=== PATIENT | female | born 1980 | race Native Hawaiian/Other Pacific Islander ===

== ENCOUNTER 2018-12-26 05:15 | Inpatient (IN) | payer OTHER ==
[2018-12-26 05:55] VITALS: BMI 32.9
--- NOTE | 2018-12-26 07:02 | OBHP ---
Datetime: 12/26/2018 06:55 IP Adm Impression: Term, intrauterine IP Admit Plan: Admit to unit; Initiate labor augmentation protocol Admit Comment, IP Provider: 38 yo G1 at 39 wks admitted to L_D w/ spontaneous rupture of membranes i n early labor. FHT reactive. GBS negative. Pt receives her care w/ Dr. Stephanie Calderon. H_P dictated, "[id number]" (ES) Extremities - PN: Abnormal Abdomen - PN: Normal Back - PN: Normal Lungs - PN: Normal Heart - PN: Normal Neurologic - PN: Normal General - PN: Normal FHR - Baseline A Provider: 130's Amniotic Fluid Color, Provider: Clear Membranes, Provider: Ruptured Contraction Comments Provider: irregular Comments, ACOG Physical Exam: Extremities: 2+ edema Pool Provider: Positive Nitrazine Provider: Positive Ferning Provider: Positive EGA AdmitDate IP: 39.0 Vital Signs Provider: Reviewed IP Chief Complaint: Suspected ruptured membranes NICHD Variability Prov Fetus A: Moderate 6-25bpm NICHD Accel Fetus A IP Provider: 15X15 FHR Category Provider Fetus A: Category I NICHD Decel Fetus A IP Provider: None Dilatation, Provider: 1 Effacement, Provider: 75 Station, Provider: -2 Genitourinary Exam: Normal
--- NOTE | 2018-12-26 07:09 | OBADHP ---
Datetime: 12/26/2018 07:02 Admit Comment, IP Provider: 38 yo G1 at 39 wks admitted to L_D w/ spontaneous rupture of membranes i n early labor. FHT reactive. GBS negative. Pt receives her care w/ Dr. Stephanie Calderon. H_P dictated, "[id number]" (ES) Extremities - PN: Abnormal Abdomen - PN: Normal Back - PN: Normal Lungs - PN: Normal Heart - PN: Normal Neurologic - PN: Normal General - PN: Normal FHR - Baseline A Provider: 130's Amniotic Fluid Color, Provider: Clear Membranes, Provider: Ruptured Contraction Comments Provider: irregular Comments, ACOG Physical Exam: Ext: 2+ edema Pool Provider: Positive Nitrazine Provider: Positive Ferning Provider: Positive IP Chief Complaint: Suspected ruptured membranes NICHD Variability Prov Fetus A: Moderate 6-25bpm NICHD Accel Fetus A IP Provider: 15X15 FHR Category Provider Fetus A: Category I NICHD Decel Fetus A IP Provider: None Dilatation, Provider: 1 Effacement, Provider: 75 Station, Provider: -2 Genitourinary Exam: Normal EGA AdmitDate IP: 39.0 IP Adm Impression: Term, intrauterine IP Admit Plan: Admit to unit; Initiate labor augmentation protocol Datetime: 12/26/2018 06:55 Vital Signs Provider: Reviewed
[2018-12-26] MEDS: Lactated Ringer's 1,000 ML IV SCH ×5 (07:30→23:30)
[2018-12-26 08:12] LABS: BASO % 0.4 % (0.0-2.0); EOS # 0.1 K/uL (0.0-0.7); EOS % 1.1 % (0.0-4.0); HEMOGLOBIN 12.1 g/dL (12.0-16.0); LYMPH # 2.5 K/uL (1.0-4.3); MEAN CELL VOLUME 91.1 fl (81.0-99.0); MEAN PLATELET VOLUME 9.7 fl (7.2-11.7); MONO # 0.9 K/uL (0.0-0.8); MONO % 9.2 % (0.0-10.0); NEUT # 6.1 K/uL (1.8-7.0); NEUT % 63.3 % (50.0-75.0); NRBC % 0.1 % (0.0-0.0); RBC 4.01 Mil/uL (3.80-5.20); RED CELL DISTRIBUTION WIDTH 14.4 % (11.5-14.5); WHITE BLOOD COUNT 9.7 K/uL (4.8-10.8)
[2018-12-26] MEDS ORDERED: Oxytocin 30 UNIT in NS 500 ml 30 UNITS/500 ML BAG IV ONE (08:14)
--- NOTE | 2018-12-26 10:30 | OBPN ---
Datetime: 12/26/2018 10:28 IP Informed Consent Obtain: Vaginal Delivery IP Procedures: Sterile Vag Exam IP Progress Plan: Continue present management Membranes, Provider: Ruptured Contraction Comments Provider: q 2-5 mins FHR - Baseline A Provider: 140 IP Progress Note Comment: Patient feeling discomfort with contractions, would like epidural for pain VE = /-1 FHR = 140 mod blessing, +accels, no decels TOCO = marissa q 2-5 mins A/P 1. Patient to get epidural for pain Vital Signs Provider: Reviewed; Within Normal Limits NICHD Accel Fetus A IP Provider: 15X15 NICHD Variability Prov Fetus A: Moderate 6-25bpm Dilatation, Provider: 1 Effacement, Provider: 70 Station, Provider: -1 NICHD Decel Fetus A IP Provider: None Datetime: 12/26/2018 07:02 Pool Provider: Positive Nitrazine Provider: Positive Ferning Provider: Positive Amniotic Fluid Color, Provider: Clear FHR Category Provider Fetus A: Category I
[2018-12-26] MEDS ORDERED: Bupivacaine HCl 0.5% PF (30 ml) Inj ONE (11:02)
--- NOTE | 2018-12-26 13:11 | HP ---
HISTORY OF PRESENT ILLNESS: This is a 38-year-old G1 at 39 weeks with an EDC of 01/02/2019 by last menstrual period, consistent with an 8-plus-week ultrasound ,who reports that she passed her mucus plug around 2 a.m. and has had lower back pain on and off for the last 24 hours. The patient reports leaking of fluid. Reports passing a mucus plug and started spotting as well as leaking fluid, all started around 2 a.m. She reports positive movement. The patient receives her care with Dr. Stephanie Calderon. 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 GBS is negative and that was done on 12/02/2018. PAST MEDICAL HISTORY: She has a history of uterine fibroids. She has a history of kidney stones. PAST SURGICAL HISTORY: Robotic myomectomy in 2015. She also reports open surgery for kidney stones when she was 10 years old. MEDICATIONS: vitamins and famotidine. ALLERGIES: NO KNOWN DRUG ALLERGIES. FAMILY HISTORY: Noncontributory. SOCIAL HISTORY: The patient denies tobacco, alcohol and illicit drug use. 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 The patient reports regular periods that last about 5 to 6 days. She denies any history of any STDs or any abnormal Pap smears. LABORATORY DATA: On 06/10/2018, hepatitis B surface antigen is negative and hepatitis B surface antibody is negative. On 06/10/2018, blood type is O positive. No antibodies detected. On 06/10/2018, cystic fibrosis was positive. Otherwise, Horizon 27 layne-ethnic standard test was negative. On 06/10/2018, hemoglobin electrophoresis was normal pattern. On 06/10/2018, RPR was negative. Urine culture was no growth. HIV was negative. Rubella was positive. Drug screen was negative. On 06/22/2018, panoraal test was low risk and female fetus. On 10/05/2018, she had a 3-hour test, the fasting was 81, one hour was 148, the 2-hour was 107, and her 3-hour was 120. On 12/02/2018, group B strep was negative. Hepatitis B surface antigen was negative. HIV was negative. RPR was reactive, 1:1 titer. FTA antibody screen was negative. On 12/09/2018, urine culture was no growth. PHYSICAL EXAMINATION: GENERAL: The patient appears comfortable, lying in bed. VITAL SIGNS: Afebrile. Vital signs are stable. HEART: Regular rate and rhythm. LUNGS: Clear to auscultation bilaterally. ABDOMEN: Soft, nontender, gravid with positive bowel sounds. EXTREMITIES: Nontender and there is 2+ edema bilaterally. SPECULUM: Speculum exam revealed positive pooling, positive nitrazine, and positive ferning. PELVIC: Cervical exam was 1 cm dilated, 75% effaced and -2 station at 6:09 a.m. External monitoring: Baseline is in the 130s with moderate variability and positive accelerations. Tocodynamometer: Contractions appeared to be irregular. ASSESSMENT AND PLAN: This is a 38-year-old G1 at 39 weeks with spontaneous rupture of membranes for clear fluid. heart tracing is reactive. GBS is negative. Will follow contractions and consider starting Pitocin for possible augmentation if needed. Donaldo Gonzales MD MTDD
[2018-12-26] MEDS ORDERED: Fentanyl/Bupivacaine HCl 250 ML EPI ONE (15:00)
[2018-12-27] MEDS ORDERED: ceFAZolin 2 GM in Sodium Chloride 0.9% 100 ML IVPB ONE (06:00)
[2018-12-27] MEDS ORDERED: Oxytocin 30 UNIT in NS 500 ml 30 UNITS/500 ML BAG IV ONE (06:02)
[2018-12-27] MEDS ORDERED: OXYTOCIN/0.9 % NS 20 UNIT/1,000 ML BAG IV ONE (06:02)
--- NOTE | 2018-12-27 06:10 | OBPN ---
Datetime: 12/27/2018 00:06 IP Progress Impression: Normal progression of labor IP Informed Consent Obtain: Vaginal Delivery IP Procedures: Sterile Vag Exam IP Progress Plan: Continue present management; Augmentation Membranes, Provider: Ruptured Contraction Comments Provider: q 2-4 mins FHR - Baseline A Provider: 150 Vital Signs Provider: Reviewed NICHD Accel Fetus A IP Provider: 15X15 NICHD Variability Prov Fetus A: Moderate 6-25bpm Dilatation, Provider: 7 Effacement, Provider: 80 Station, Provider: -1 Datetime: 12/26/2018 20:04 IP Progress Note Comment: Patient evaluated, comfortable s/p epidural. VE = 4/80/-1 FHR = 120 mod blessing, +accels, no decels TOCO = marissa q 1-4 mins, Pitocin @ 5 mu/min A/P 1. Patient progressing in labor, now 4cm 2. Continue Pitocin for augmentation 3. CEFM and TOCO 4. Re-evaluate as needed NICHD Decel Fetus A IP Provider: None
[2018-12-27] MEDS ORDERED: Azithromycin 500 MG in Sodium Chloride 0.9% 250 ML IVPB SCH (06:30)
--- NOTE | 2018-12-27 06:46 | OBPN ---
Datetime: 12/27/2018 06:37 IP Progress Impression: Arrest of dilatation/descent IP Informed Consent Obtain: Section Delivery IP Procedures: Sterile Vag Exam IP Progress Plan: Deliver- Section Membranes, Provider: Ruptured FHR - Baseline A Provider: 150 IP Progress Note Comment: Patient evaluated, having non-recurrent late decelerations for the past fe w hours. Contractions have not been able to become adequate because unable to increase Pitocin due to late decelerations. Discussed with patient that she is an arrest of labor, still 7cm dilated. Recomm endation is for delivery via . FHR = 150 mod blessing, +accels, non-recurrent late decelerations. Patient consented of risks/benefits of surgery including risk of bleeding, infection, damage to surr ounding organs. Patient verbalized consent and signed informed consent. ANcef/Azithromycin were order ed for patient for prophylaxis. Patient to be taken to OR when available Vital Signs Provider: Reviewed; Within Normal Limits NICHD Accel Fetus A IP Provider: 15X15 NICHD Variability Prov Fetus A: Moderate 6-25bpm Dilatation, Provider: 7 Effacement, Provider: 80 Station, Provider: -1 NICHD Decel Fetus A IP Provider: Late
[2018-12-27] MEDS ORDERED: Lidocaine 2% PF (10 ml) Amp ONE (06:50)
[2018-12-27] MEDS ORDERED: Phenylephrine 10 mg/ml Inj ONE (07:05)
[2018-12-27] MEDS: Lactated Ringer's 1,000 ML IV SCH (07:15)
[2018-12-27] MEDS ORDERED: Oxycodone/Acetaminophen 5/325 mg Tab PO PRN ×5 (07:29→20:00)
--- NOTE | 2018-12-27 07:43 | OBDS ---
DELIVERY PERSONNEL Delivery Doctor: Lori Stinson MD Fondant Machine Operator: Rachael Mitchell RN Anesthesiologist: Blu Dowd MD MATERNAL INFORMATION Delivery Anesthesia: Epidural Medications in Delivery: Oxytocin Estimated Blood Loss (ml): 800 Placenta Cultured: No Maternal Complications: None Other Maternal Complications: Gilbert Ramos RN OR carol RN Comments: Atraumatic Primary delivery of A viable baby gir with lusty cry infant assess ed and assigned 9/9 APGARs skin to skin initiated shortly after delivery. and patient recover ramon well. Provider Comments: Surgeon: Dr. Stinson Grinder Outside Diameter: Dr. Stinson Pre-op Dx: Arrest of labor with cat 2 tracing remote from delivery Post-op Dx:Same Findings: live female 8lbs 7oz, 9/9, clear fluid, grossly nml tubes, ovaries, placenta, fun luh fibroid noted EBL: 800mL Anesthesia: epidural by Dr. Dowd UO: 200mL Complications: NOne COndition: Stable Pathology: Cord blood LABOR SUMMARY EDC: 01/02/2019 00:00 No. Babies in Womb: 1 Attempted: No Labor Anesthesia: None LABOR INFORMATION Reason for Induction: Not Applicable Onset of Labor: 12/26/2018 23:11 Oxytocin: Induction Group B Beta Strep: Negative Steroids Given: None Reason Steroids Not Administered: Not Applicable MEMBRANES Membranes Rupture Method: Spontaneous Rupture of Membranes: 12/26/2018 02:00 Length of Rupture (hrs): 29.13 Amniotic Fluid Color: Clear Amniotic Fluid Amount: Small Amniotic Fluid Odor: None STAGES OF LABOR Stage 3 hrs: 0 Stage 3 min: 1 Total Time in Labor hrs: 7 Total Time in Labor min: 58 VAGINAL DELIVERY Laceration Extension: N/A CSECTION DELIVERY Primary Indication: Arrest of dilatation CSection Urgency: Elective CSection Incidence: Primary Labor: Labor Elective: Elective CSection Incision: Lower Uterine Transverse BABY A INFORMATION Infant Delivery Date/Time: 12/27/2018 07:08 Method of Delivery: Born in Route : No : N/A Forceps: N/A Vacuum Extraction: N/A Shoulder Dystocia : No SHOULDER DYSTOCIA BABY A Infant Delivery Date/Time: 12/27/2018 07:08 PRESENTATION/POSITION BABY A Presentation: Cephalic Cephalic Presentation: Vertex Vertex Position: Left Occipital Anterior Breech Presentation: N/A PLACENTA INFORMATION BABY A Placenta Delivery Time : 12/27/2018 07:09 Placenta Method of Delivery: Spontaneous Placenta Status: Delivered SCORES BABY A Heart Rate 1 min: >100 bpm Resp Effort 1 min: Good Cry Reflex Irritability 1 min: Cough or Sneeze or Pulls Away Muscle Tone 1 min: Active Motion Color 1 min: Body Kuna, Extremities Blue Resuscitation Effort 1 min: N/A SCORE 1 MIN: 9 Heart Rate 5 min: >100 bpm Resp Effort 5 min: Good Cry Reflex Irritability 5 min: Cough or Sneeze or Pulls Away Muscle Tone 5 min: Active Motion Color 5 min: Body Kuna, Extremities Blue Resuscitation Effort 5 min: N/A SCORE 5 MIN: 9 INFANT INFORMATION BABY A Gestational Age at Delivery: 39.1 Gestational Status: Term Outcome : Liveborn Condition : Stable Sex: Female IDENTIFICATION/MEDS BABY A ID Band Number: [id number] ID Band Location: Left Leg; Left Arm WEIGHT/LENGTH BABY A Infant Birthweight (gms): 3820 Infant Weight (lb): 8 Infant Weight (oz): 7 CORD INFORMATION BABY A No. Cord Vessels: 3 Nuchal Cord : Around Neck x1, Loose Cord Blood Taken: No Infant Suction: Mouth; Nose ASSESSMENT BABY A Complications: None Physical Findings at Delivery: Within Normal Limits Respirations: Appears Normal Hot Plate Plywood Press Offbearer/ALS Called : No Infant Care By: Aj Transferred To: Remains with Mother
[2018-12-27] MEDS ORDERED: DiphenhydrAMINE 50 mg/ml Inj IVP PRN ×2 (08:25→11:32)
[2018-12-27] MEDS ORDERED: Multivitamin With Minerals Tab PO SCH ×2 (09:00)
[2018-12-27] MEDS ORDERED: Simethicone 80 mg Chewtab PO SCH (10:00)
--- NOTE | 2018-12-27 14:22 | OP ---
PROCEDURE DATE: 12/27/2018 PREOPERATIVE DIAGNOSIS: Arrest of labor with category 2 tracing remote from delivery. POSTOPERATIVE DIAGNOSIS: Arrest of labor with category 2 tracing remote from delivery. PROCEDURE: Low transverse section. SURGEON: Brandi Stinson MD MEDICAL STAFF SERVICES MANAGER: Stan Castillo DO FINDINGS: Live female infant, cephalic presentation, 8 pounds and 7 ounces, 9 and 9 Apgars. Clear fluid. Grossly normal tubes, ovaries, placenta, fundal fibroid noted. ESTIMATED BLOOD LOSS: 800 mL. URINE OUTPUT: 400 mL. ANESTHESIA: Spinal. ANESTHESIOLOGIST: Pan Dowd MD COMPLICATIONS: None. CONDITION: Stable. PATHOLOGY SPECIMEN: Cord blood. INDICATIONS: This is a 38-year-old G1, P0 at 39 weeks and 1 day who presented to labor and delivery, premature rupture of membranes. The patient progressed to 7 cm dilated but was unable to continue augmentation to a point of adequate contractions. The patient was 7 cm dilated for over 6 hours without adequate contractions and had nonrecurrent late decelerations or category 2 tracing which prevented further augmentation to adequate contraction strength. The patient was advised to proceed with for delivery. The patient was advised of the risks and benefits of procedure including risk of bleeding, infection, and damage to surrounding organs such as bowel, bladder, ureter, uterus. The verbalized understanding and signed informed consent. DESCRIPTION OF PROCEDURE: The patient was taken to OR. Ancef and azithromycin were given preoperatively. SCDs were placed bilaterally. The patient was prepped and draped in a normal sterile fashion in dorsal supine position with a leftward tilt. A Pfannenstiel skin incision was made with the scalpel and carried through to the underlying layer of fascia with the Bovie. The fascia was incised in the midline. The incision was extended laterally with the help of the Bovie. Alejandro clamps were used to tent up the inferior aspect of this incision which we dissected off the underlying pyramidalis muscles with the Bovie. In a similar fashion, we used Alejandro clamps and tented up the superior aspect of this incision which we dissected off of the underlying rectus abdominis muscles with the Bovie. The muscles were bluntly at the midline. The incision was extended superiorly and inferiorly with good visualization of all underlying organs and the peritoneum was entered. The vesicouterine peritoneum was identified and the bladder flap was created with the Metzenbaum scissors. We incised the lower uterine segment in a transverse fashion with the scalpel. The uterine cavity was entered. Clear fluid was noted. Infant was delivered in cephalic presentation atraumatically followed by shoulders and the rest of the infant atraumatically. Cord was clamped and cut. Cord blood was obtained. Placenta was extracted. The uterus was exteriorized, cleared of all clots. The uterine incision was repaired with an 0 Vicryl stitch. The second imbricating layer was done with an 0 Monocryl stitch. Good hemostasis was noted. The uterus was returned to the abdomen. Gutters were cleared of all clots. The peritoneum was closed with a 2-0 Monocryl, and the muscles were reapproximated with same stitch. The fascia was closed with an 0 Vicryl stitch and subcutaneous fat was reapproximated with plain gut suture. The skin was closed with a 4-0 Monocryl. Sponge, lap, and needle counts were correct x4. The patient was taken to the recovery room in stable condition. There were no other complications. Dr. Castillo assisted in all aspects of delivery including exposure, retraction, cutting of sutures and delivery of infant Brandi tSinson MD MTDD
[2018-12-27] MEDS: Simethicone 80 mg Chewtab PO SCH ×2 (15:57→21:59)
[2018-12-27] MEDS: Oxycodone/Acetaminophen 5/325 mg Tab PO PRN (23:18)
[2018-12-28] MEDS: Simethicone 80 mg Chewtab PO SCH ×4 (03:19→23:00)
[2018-12-28] MEDS: Oxycodone/Acetaminophen 5/325 mg Tab PO PRN ×2 (03:20→08:24)
[2018-12-28 06:51] LABS: HEMOGLOBIN 11.3 g/dL (12.0-16.0); MEAN CELL VOLUME 91.8 fl (81.0-99.0); MEAN CORPUSCULAR HEMOGLOBIN 30.2 pg (27.0-31.0); MEAN CORPUSCULAR HGB CONC 32.8 g/dL (33.0-37.0); RBC 3.74 Mil/uL (3.80-5.20); RED CELL DISTRIBUTION WIDTH 14.7 % (11.5-14.5); WHITE BLOOD COUNT 13.6 K/uL (4.8-10.8)
[2018-12-28] MEDS ORDERED: Azithromycin 500 MG in Sodium Chloride 0.9% 250 ML IVPB SCH (09:00)
--- NOTE | 2018-12-28 09:23 | OBPPN ---
Datetime: 12/28/2018 09:17 PP Pain Prov: Within normal limits PP Nausea Prov: Denies PP Flatus Prov: Yes PP Breasts Prov: Not Done PP Heart Prov: Normal PP Lungs Prov: Normal PP Abdomen/Uterus Prov: Normal PP Lochia Prov: Not Done PP Vulva/Perineum Prov: Not Done PP CVA Tenderness Prov: Normal PP Extremities Prov: Normal PP C/S Incision Prov: Normal PP Impression Prov: Normal progression PP Plan Prov: Continue present management PP Progress Note Prov: Patient doing well ambulating tolerating diet pain well controlled Vital signs stable afebrile Uterus firm below the umbilicus Incision clean dry intact Extremities no Homans Postoperative day #1 Regular diet, ambulation, analgesia as needed DC IV fluids DC Ross Vital Signs Provider PP: Reviewed
[2018-12-28] MEDS: Multivitamin With Minerals Tab PO SCH (09:51)
--- NOTE | 2018-12-29 01:17 | OBPPN ---
Datetime: 12/29/2018 01:11 PP Pain Prov: Within normal limits PP Nausea Prov: Denies PP Flatus Prov: Yes PP Breasts Prov: Normal PP Heart Prov: Normal PP Lungs Prov: Normal PP Abdomen/Uterus Prov: Normal PP Lochia Prov: Normal PP Vulva/Perineum Prov: Normal PP CVA Tenderness Prov: Normal PP Extremities Prov: Normal PP C/S Incision Prov: Normal PP Progress Prov: Normal PP Impression Prov: Normal progression PP Plan Prov: Continue present management; Discharge PP Progress Note Prov: pt seen and examiend with pain contorlled [facility] meds. pt is mabutin, voidng, p asisng lfuats, toelrated regular diet, no fever, chls, nasue, vmitng, +Breast feeding vss pe see aobve a/p s/p ppltcs pOd #2 dong well cont curren tmaentn Vital Signs Provider PP: Reviewed; Within Normal Limits
[2018-12-29] MEDS: Simethicone 80 mg Chewtab PO SCH ×4 (04:00→22:16)
[2018-12-29] MEDS ORDERED: Bisacodyl 5mg EC Tab PO PRN ×2 (07:29)
[2018-12-29] MEDS: Multivitamin With Minerals Tab PO SCH (09:17)
[2018-12-30] MEDS: Simethicone 80 mg Chewtab PO SCH ×2 (04:44→09:11)
[2018-12-30] MEDS: Multivitamin With Minerals Tab PO SCH (09:11)
[2018-12-30 18:29] VITALS: BP 128/70; PULSE 58; RESP 20; TEMP 97.9; O2SAT 100
== END 2018-12-30 14:15 | disposition home or self-care (01) | DRG 788 ==
LOC: H.EROB2 05:15 → H.L&D 07:09 → H.EROB2 07:10 → H.L&D 07:10 → H.OB/GYN 12-27 11:20
PROVIDERS: ADMIT Obstetrics & Gynecology; ATTEND Obstetrics & Gynecology
PROC: 4A1HXCZ Monitoring of Products of Conception, Cardiac Rate, External Approach (ICD-10-PCS; 2018-12-26)
PROC: 10D00Z1 Extraction of Products of Conception, Low, Open Approach (ICD-10-PCS; principal; 2018-12-27)
DX: O76 Abnormality in fetal heart rate and rhythm complicating labor and delivery (principal); O69.81X0 Labor and delivery complicated by cord around neck, without compression, not applicable or unspecified; O62.0 Primary inadequate contractions; O42.92 Full-term premature rupture of membranes, unspecified as to length of time between rupture and onset of labor; Z3A.39 39 weeks gestation of pregnancy; Z37.0 Single live birth; Z87.442 Personal history of urinary calculi